=== PATIENT | male | born 1965 | race Caucasian/White ===

== ENCOUNTER 2021-11-01 10:15 | Inpatient (IN) | payer MEDICAID, SELFPAY ==
[~2021-11-01] VITALS: Ht 198.1 cm; Wt 147.0 kg
[2021-11-01 10:39] VITALS: BP_SYST 130
--- NOTE | 2021-11-01 11:00 | NUR ---
Pt to bed 7. Pt ambulatory with steady gait. Pt c/o sob and keeps stating "I just want to get lasix and to go home." Connected pt to ekg monitor tech. Pt has no chest pain and denies n/v. Negative stroke symptoms. EKG done and results were A-fib. Pt has no known allergies. A&Ox4. Hx of A-Fib and HTN. HR is fluctuating up and down, other vitals stable. Bed in lowest position. 22g IV placed on left AC, no infiltration noted.
[2021-11-01] MEDS ORDERED: dilTIAZem HCL IVP 5 MG/ML VIAL IVP ONE (11:15)
[2021-11-01 11:37] LABS: BASOPHILS # (AUTO) 0.1 K/uL (0.0-0.2); BASOPHILS % (AUTO) 0.5 % (0.0-2.0); EOSINOPHILS # (AUTO) 0.1 K/uL (0.0-0.4); EOSINOPHILS % (AUTO) 0.5 % (0.0-4.0); HEMATOCRIT 40.3 % (36-54); HEMOGLOBIN 13.3 g/dL (14.0-18.0); LYMPHOCYTES # (AUTO) 1.7 K/uL (1.0-5.5); LYMPHOCYTES % (AUTO) 13.6 % (20.5-51.5); MEAN CORPUSCULAR HEMOGLOBIN 29 pg (27-31); MEAN CORPUSCULAR HGB CONC 33 % (32-36); MEAN CORPUSCULAR VOLUME 88 fL (79.0-98.0); MONOCYTES # (AUTO) 0.7 K/uL (0.0-1.0); MONOCYTES % (AUTO) 5.8 % (1.7-9.3); NEUTROPHILS # (AUTO) 10.1 K/uL (1.8-7.7); NEUTROPHILS % (AUTO) 79.6 % (40.0-70.0); PLATELET COUNT (AUTO) 164 K/uL (130-430); RED BLOOD CELL COUNT(AUTO) 4.56 MIL/uL (4.2-6.2); RED CELL DISTRIBUTION WIDTH 13.3 % (9.0-15.0); WHITE BLOOD COUNT (AUTO) 12.7 K/uL (4.8-10.8)
[2021-11-01 11:50] LABS: CALCIUM 8.3 mg/dL (8.4-11.0); CREATININE 0.91 mg/dL (0.55-1.30)
--- NOTE | 2021-11-01 12:00 | NUR ---
Was going to do another repeat EKG but pt refused and stated "I do not need another EKG I already know what I have. Just give me lasix so I can go home." ER physician made aware.
[2021-11-01 12:05] LABS: ALBUMIN 3.4 g/dL (3.4-4.8); THYROID STIMULATING HORMONE 0.85 uIu/mL (0.36-3.74); TOTAL BILIRUBIN 0.5 mg/dL (0.0-1.0)
--- NOTE | 2021-11-01 12:38 | NUR ---
ER physician at bedside talking to pt and pt still refusing to do EKG and refusing to get admitted.
--- NOTE | 2021-11-01 12:55 | NUR ---
ER physician convinced pt to have another EKG done and covid swab. Explained benefits of having these diagnostic work up and risks if he refuses to get admitted.
[2021-11-01] MEDS ORDERED: AZITHROMYCIN 500 MG in D5W 250 ML IV ONE (13:00)
[2021-11-01] MEDS ORDERED: cefTRIAXone 1 GM IVPB PREMIX 50 ML IV ONE (13:00)
--- NOTE | 2021-11-01 13:53 | NUR ---
ROCEPHIN UP AND INFUSING WITHOUT DIFFICUTLY. PATIENT RESTING COMFORTABLY. WILL CONINUE TO MONITOR PATIENT. PATIENT DENIES PAIN
--- NOTE | 2021-11-01 14:10 | NUR ---
Urine collected and sent to lab. Pt is A&Ox4. Watching tv with no s/s of distress.
--- NOTE | 2021-11-01 14:14 | NUR ---
Dr. De Santiago called and placed admission orders which were to Admit to Tele, Diagnosis A-Fib, and place on cardiac diet.
[2021-11-01] MEDS ORDERED: AZITHROMYCIN 500 MG/VIAL (ZITHROMAX) IV ONE (14:34)
[2021-11-01] MEDS ORDERED: POTASSIUM CHLORIDE 20 MEQ TAB.PRT.SR PO PRN (14:45)
[2021-11-01] MEDS ORDERED: MORPHINE 2 MG/ML INJ. SYRINGE IVP PRN (14:45)
[2021-11-01] MEDS ORDERED: ACETAMINOPHEN 325 MG TABLET PO PRN (14:45)
[2021-11-01] MEDS ORDERED: ONDANSETRON HCL 4 MG/2 ML VIAL IVP PRN (14:45)
[2021-11-01] MEDS ORDERED: DOCUSATE SODIUM 100 MG CAPSULE PO PRN (14:45)
[2021-11-01] MEDS ORDERED: MUPIROCIN 2% TOPICAL OINTMENT 22 GM NS PRN (14:45)
[2021-11-01] MEDS ORDERED: LORazepam 2 MG/ML VIAL IVP PRN (14:45)
[2021-11-01] MEDS ORDERED: MAGNESIUM SULFATE 50 ML IV PRN (14:45)
[2021-11-01] MEDS ORDERED: NALOXONE HCL 0.4 MG/ML AMP (NARCAN) IVP PRN ×2 (14:45)
[2021-11-01 14:51] LABS: BILIRUBIN,URINE NEGATIVE (NEGATIVE); BLOOD, URINE NEGATIVE (NEGATIVE); CLARITY/URINE CLEAR (CLEAR); COLOR,URINE YELLOW (YELLOW); GLUCOSE,URINE NEGATIVE (NEGATIVE); KETONES,URINE NEGATIVE (NEGATIVE); LEUKOCYTE ESTERASE ,URINE NEGATIVE (NEGATIVE); NITRITE, URINE NEGATIVE (NEGATIVE); PH,URINE 5.5 (5.0-8.0); PROTEIN URINE NEGATIVE (NEGATIVE); UROBILINOGEN,URINE 0.2 (0.2-1.0)
[2021-11-01 15:03] LABS: PROTHROMBIN TIME 10.4 SECS (9.5-12.5)
--- NOTE | 2021-11-01 15:10 | NUR ---
Pt accidently pulled out IV. Gauze and dressing placed to prevent bleeding. Another IV was placed on right wrist 18g, no infiltration noted. Aseptic technique used.
[2021-11-01] MEDS: NACL 0.9% 1,000 ML IV SCH (15:11)
[2021-11-01] MEDS ORDERED: METOPROLOL TARTRATE 25 MG TABLET PO ONE (15:15)
--- NOTE | 2021-11-01 17:55 | NUR ---
CONSULTATION PAGED REASON FOR CONSULTATION:A-FIB WAS CONSULT CALLED? PERSON WHO WAS NOTIFIED:ZACHARIAH CONSULTING PHYSICIAN:AMANDO BRASHER PUPIL PERSONNEL WORKER SPECIALTY:CARDIO PUPIL PERSONNEL WORKER PHONE NUMBER:[phone] REQUESTING PHYSICIAN:[facility]
--- NOTE | 2021-11-01 17:59 | NUR ---
CONSULTATION PAGED REASON FOR CONSULTATION:[facility] WAS CONSULT CALLED?Y PERSON WHO WAS NOTIFIED:RUKHSANA CONSULTING PHYSICIAN:MERLE LIZ CHIEF CRNA SPECIALTY:PULMONARY CHIEF CRNA PHONE NUMBER:[phone] REQUESTING PHYSICIAN:DR.[facility]
--- NOTE | 2021-11-01 18:19 | NUR ---
Patient will be admitted to care of Dr. De Santiago. Admitted to Tele unit. Will go to room 101B. Belongings list completed. Complete and up to date summary report printed. SBAR report to be given at bedside with opportunity for questions.
[2021-11-01 19:10] VITALS: BP_SYST 122
[2021-11-01] MEDS ORDERED: METOPROLOL TARTRATE 25 MG TABLET PO SCH (21:00)
[2021-11-01] MEDS ORDERED: HEPARIN SODIUM,PORCINE 5,000 UNITS/ML VIAL SUBCUT SCH (21:00)
[2021-11-01 21:27] VITALS: BP_SYST 152
[2021-11-01 21:51] VITALS: BP_SYST 152
[2021-11-01] MEDS: cefTRIAXone 1 GM in D5W 50 ML IV SCH (21:53)
[2021-11-01] MEDS: metroNIDAZOLE 500 MG TABLET PO SCH (21:53)
[2021-11-01] MEDS: MORPHINE 2 MG/ML INJ. SYRINGE IVP PRN (21:56)
[2021-11-01] MEDS: ZOLPIDEM TARTRATE 5 MG TABLET PO PRN (23:36)
[2021-11-02] VITALS (7 sets, daily range): BP systolic 123–154
[2021-11-02] LABS: BARBITURATE, URINE NEGATIVE (NEG <=200); BENZODIAZEPINE, URINE NEGATIVE (NEG <=150); CANNABINOID, URINE NEGATIVE (NEG <=50); COCAINE, URINE NEGATIVE (NEG <=150); METHAMPHETAMINES SCREEN,URINE NEGATIVE (NEG <=500); OPIATE, URINE POSITIVE (NEG <=100); PHENCYCLIDINE SCREEN,URINE NEGATIVE (NEG <=25); UR TRICYCLIC ANTIDEPRESSANTS NEGATIVE (NEG <=300); URINE AMPHETAMINE NEGATIVE (NEG <=500); URINE METHADONE NEGATIVE (NEG <=200); URINE OXYCODONE SCREEN NEGATIVE (NEG <=100); URINE PROPOXYPHENE SCREEN NEGATIVE (NEG <=300)
[2021-11-02] MEDS: MORPHINE 2 MG/ML INJ. SYRINGE IVP PRN ×2 (02:57→14:51)
[2021-11-02] MEDS: metroNIDAZOLE 500 MG TABLET PO SCH ×3 (06:19→21:52)
[2021-11-02] MEDS: NACL 0.9% 1,000 ML IV SCH ×2 (06:20→23:28)
[2021-11-02] MEDS: FUROSEMIDE 40 MG/4 ML VIAL IVP SCH ×2 (06:43→09:35)
[2021-11-02 07:22] LABS: BASOPHILS % (AUTO) 0.4 % (0.0-2.0); EOSINOPHILS # (AUTO) 0.1 K/uL (0.0-0.4); EOSINOPHILS % (AUTO) 0.5 % (0.0-4.0); HEMATOCRIT 37.8 % (36-54); HEMOGLOBIN 12.6 g/dL (14.0-18.0); LYMPHOCYTES # (AUTO) 2.5 K/uL (1.0-5.5); LYMPHOCYTES % (AUTO) 22.5 % (20.5-51.5); MEAN CORPUSCULAR HEMOGLOBIN 30 pg (27-31); MEAN CORPUSCULAR HGB CONC 33 % (32-36); MEAN CORPUSCULAR VOLUME 89 fL (79.0-98.0); MONOCYTES # (AUTO) 0.8 K/uL (0.0-1.0); MONOCYTES % (AUTO) 7.2 % (1.7-9.3); NEUTROPHILS # (AUTO) 7.6 K/uL (1.8-7.7); NEUTROPHILS % (AUTO) 69.4 % (40.0-70.0); PLATELET COUNT (AUTO) 152 K/uL (130-430); RED BLOOD CELL COUNT(AUTO) 4.26 MIL/uL (4.2-6.2); RED CELL DISTRIBUTION WIDTH 13.3 % (9.0-15.0)
[2021-11-02 08:02] LABS: CALCIUM 8.4 mg/dL (8.4-11.0); CREATININE 0.86 mg/dL (0.55-1.30); POTASSIUM 4.5 mmol/L (3.5-5.1)
[2021-11-02] MEDS ORDERED: LOSARTAN POTASSIUM 25 MG TABLET PO SCH (09:00)
[2021-11-02] MEDS: HYDROCHLOROTHIAZIDE 25 MG TABLET (HCTZ) PO SCH (09:34)
[2021-11-02] MEDS: METOPROLOL TARTRATE 50 MG TABLET PO SCH ×2 (09:35→21:53)
[2021-11-02] MEDS: APIXABAN 2.5 MG TABLET PO SCH ×2 (09:37→21:53)
--- NOTE | 2021-11-02 10:15 | NUR ---
PATIENTS STATES HE IS HAVING UNRELENTING PAIN IN HIS LEFT SHOULDER, STATES HE IS SCHEDULED TO HAVE SURGERY ON THE SHOULDER OUTPATIENT, ASKED IF HE COULD HAVE MEDICATION TO HELP CONTROL THE PAIN. PROVIDED MORPHINE 1MG IVP, WILL CONTINUE TO MONITOR FOR EFFECTIVENESS.
--- NOTE | 2021-11-02 17:35 | NUR ---
CALLED DR LIVE TO FOLLOW UP ON THE PLAN OF CARE FOR THE PATIENT BECAUSE PATIENT STATED "THE DOCTOR TOLD ME THEY ARE GOING TO SHOCK MY HEART AND DO AN ULTRASOUND". PER THE CURRENT ORDERS THERE IS NO PLAN FOR CARDIOVERSION OR ULTRASOUND SO CALLED DR LIVE TO CONFIRM AND PROVIDED PATIENT WITH A CLEAR PLAN OF CARE. DR LIVE STATES PATIENT DOES NOT NEED CARDIOVERSION AND THAT HE RECENTLY HAD AN ULTRASOUND OF THE HEART THAT WAS NEGATIVE SO HE STATED THE PLAN OF CARE IS TO TITRATE MEDICATIONS AND PATIENT WILL MOST LIKELY BE DISCHARGE TOMORROW.
[2021-11-02] MEDS: cefTRIAXone 1 GM in D5W 50 ML IV SCH (17:50)
--- NOTE | 2021-11-02 17:50 | NUR ---
PATIENT ARRIVED BACK FROM PACU, CLARISA CATH PLACED IN RIGHT UPPER CHEST, DERMABOND USED TO SEAL WOUND, BANDADE IN PLACE ON LEFT NECK FOR FAILED ATTEMPT SITE, REPORTED FROM PACU NURSE ROSE. CHOPRA, NO PAIN, BED IN LOWEST LOCKED POSITION, VITALS STABLE. Addendum: 11/02/21 at 1917 by Sophia Melgar RN DISREGARD, WRONG PATIENT
[2021-11-02] MEDS: ZOLPIDEM TARTRATE 5 MG TABLET PO PRN (21:52)
[2021-11-03 00:58] VITALS: BP_SYST 157
[2021-11-03 04:38] VITALS: BP_SYST 157
[2021-11-03] MEDS: MORPHINE 2 MG/ML INJ. SYRINGE IVP PRN (04:44)
[2021-11-03] MEDS: metroNIDAZOLE 500 MG TABLET PO SCH (05:09)
[2021-11-03 07:27] LABS: CALCIUM 8.5 mg/dL (8.4-11.0); CREATININE 0.93 mg/dL (0.55-1.30); POTASSIUM 3.4 mmol/L (3.5-5.1)
[2021-11-03 08:00] VITALS: BP_SYST 152
[2021-11-03 08:15] LABS: BASOPHILS # (AUTO) 0.1 K/uL (0.0-0.2); BASOPHILS % (AUTO) 0.5 % (0.0-2.0); EOSINOPHILS # (AUTO) 0.2 K/uL (0.0-0.4); EOSINOPHILS % (AUTO) 1.8 % (0.0-4.0); HEMATOCRIT 40.7 % (36-54); HEMOGLOBIN 13.6 g/dL (14.0-18.0); LYMPHOCYTES # (AUTO) 2.1 K/uL (1.0-5.5); LYMPHOCYTES % (AUTO) 18.7 % (20.5-51.5); MEAN CORPUSCULAR HEMOGLOBIN 30 pg (27-31); MEAN CORPUSCULAR HGB CONC 33 % (32-36); MEAN CORPUSCULAR VOLUME 89 fL (79.0-98.0); MONOCYTES # (AUTO) 0.9 K/uL (0.0-1.0); MONOCYTES % (AUTO) 7.7 % (1.7-9.3); NEUTROPHILS % (AUTO) 71.3 % (40.0-70.0); PLATELET COUNT (AUTO) 158 K/uL (130-430); RED BLOOD CELL COUNT(AUTO) 4.59 MIL/uL (4.2-6.2); RED CELL DISTRIBUTION WIDTH 13.7 % (9.0-15.0); WHITE BLOOD COUNT (AUTO) 11.1 K/uL (4.8-10.8)
[2021-11-03] MEDS ORDERED: METO50TA7 PO (08:25)
[2021-11-03] MEDS ORDERED: LEVO500T90 PO (08:25)
[2021-11-03] MEDS ORDERED: POTA-178 PO (08:25)
[2021-11-03] MEDS ORDERED: FURO-150 PO (08:25)
--- NOTE | 2021-11-03 08:30 | NUR ---
Dr Russell and Dr De Santiago cleared patient for discharge, patient is stable at this time, in bed, no s/s of distress, a/ox4, will complete discharge.
[2021-11-03] MEDS: HYDROCHLOROTHIAZIDE 25 MG TABLET (HCTZ) PO SCH (08:37)
[2021-11-03] MEDS: APIXABAN 2.5 MG TABLET PO SCH (08:40)
[2021-11-03] MEDS ORDERED: METOPROLOL SUCCINATE 50 MG TAB.SR.24H (TOPROL XL) PO SCH (09:00)
[2021-11-03] MEDS ORDERED: LOSARTAN POTASSIUM 50 MG TABLET (COZAAR) PO SCH (09:00)
[2021-11-03 10:14] VITALS: BP_SYST 152
--- NOTE | 2021-11-03 10:50 | NUR ---
PATIENT DISCHARGED, IV REMOVED, WRIST BAND REMOVED, DISCHARGE PACKET COMPLETED, SIGNED, PRINTED AND IN CHART, AND COPY WITH PATIENT. DISCHARGE EDUCATION GIVEN AND EXPLAINED MEDICATION ORDERS. PATIENT VOICED UNDERSTANDING. ALL BELONGINGS WITH PATIENT. TAKEN TO CAR IN WHEELCHAIR. TOLERATED WELL.
== END 2021-11-03 10:50 | disposition home or self-care (01) | DRG 720 ==
LOC: SED 10:15 → SMU 14:12 → STU 17:34
PROVIDERS: ADMIT General Practice; ATTEND General Practice
DX: A41.9 Sepsis, unspecified organism (principal); I50.23 Acute on chronic systolic (congestive) heart failure; J18.9 Pneumonia, unspecified organism; I11.0 Hypertensive heart disease with heart failure; I48.91 Unspecified atrial fibrillation; Z20.822 Contact with and (suspected) exposure to COVID-19; K21.9 Gastro-esophageal reflux disease without esophagitis; E66.9 Obesity, unspecified; Z68.37 Body mass index [BMI] 37.0-37.9, adult; Z87.891 Personal history of nicotine dependence
CPT/HCPCS: 36415; 71045; 80048; 80053; 80307; 81003; 83036; 83605; 83735; 83880; 84443; 84484; 85025; 85610-TC; 85730-TC; 87040; 87086; 93005; 96374; 96375; 99291; G0378; J0456; J0696; J1644; J1940; J2270; J3490; J7060

== ENCOUNTER 2022-04-03 07:35 | Emergency (ER) | payer MEDICAID ==
[~2022-04-03] VITALS: Ht 198.1 cm; Wt 136.1 kg
[~2022-04-03 07:35] MED LIST: FURO-150 PO; LEVO500T90 PO; METO50TA7 PO; POTA-178 PO
[2022-04-03 07:37] VITALS: BP_SYST 195
--- NOTE | 2022-04-03 07:49 | NUR ---
PT PLACED IN BED ,IN GOWN, RIGHT ANKLE PAIN, AWAITING FOR ERMD
--- NOTE | 2022-04-03 07:55 | NUR ---
ERMD AT BEDSIDE AT THIS TIME
[2022-04-03] MEDS ORDERED: CYCLOBENZAPRINE HCL 10 MG TABLET (FLEXERIL) PO ONE (08:15)
[2022-04-03] MEDS ORDERED: HYDROcodone/ACETAMIN 7.5-325 MG TAB PO ONE (08:15)
[2022-04-03 08:23] LABS: BASOPHILS # (AUTO) 0.1 K/uL (0.0-0.2); BASOPHILS % (AUTO) 0.7 % (0.0-2.0); EOSINOPHILS # (AUTO) 0.2 K/uL (0.0-0.4); EOSINOPHILS % (AUTO) 1.8 % (0.0-4.0); HEMOGLOBIN 14.2 g/dL (14.0-18.0); LYMPHOCYTES # (AUTO) 2.6 K/uL (1.0-5.5); LYMPHOCYTES % (AUTO) 21.5 % (20.5-51.5); MEAN CORPUSCULAR HEMOGLOBIN 27 pg (27-31); MEAN CORPUSCULAR HGB CONC 33 % (32-36); MEAN CORPUSCULAR VOLUME 82 fL (79.0-98.0); MONOCYTES # (AUTO) 0.6 K/uL (0.0-1.0); MONOCYTES % (AUTO) 5.3 % (1.7-9.3); NEUTROPHILS # (AUTO) 8.6 K/uL (1.8-7.7); NEUTROPHILS % (AUTO) 70.7 % (40.0-70.0); PLATELET COUNT (AUTO) 218 K/uL (130-430); RED BLOOD CELL COUNT(AUTO) 5.24 MIL/uL (4.2-6.2); WHITE BLOOD COUNT (AUTO) 12.2 K/uL (4.8-10.8)
[2022-04-03 08:50] LABS: CREATININE 1.5 mg/dL (0.55-1.30); POTASSIUM 3.3 mmol/L (3.5-5.1)
[2022-04-03 08:55] LABS: ALBUMIN 3.1 g/dL (3.4-4.8); PHOSPHORUS 4.2 mg/dL (2.7-4.5); TOTAL BILIRUBIN 0.8 mg/dL (0.0-1.0)
--- NOTE | 2022-04-03 09:29 | NUR ---
ULTRASOUND AT THE BEDSIDE
--- NOTE | 2022-04-03 09:39 | NUR ---
US AT BEDSIDE AT THIS TIME
[2022-04-03] MEDS ORDERED: IBUPROFEN 600 MG TABLET PO ONE (10:30)
--- NOTE | 2022-04-03 10:30 | NUR ---
PT REFUSED TYLENOL MEDS
[2022-04-03 10:56] LABS: INR 1.2 (0.80-1.20); PROTHROMBIN TIME 12.4 SECS (9.5-12.5)
[2022-04-03] MEDS ORDERED: MORPHINE 4 MG INJ. 4 MG/ML VIAL IVP ONE (11:00)
[2022-04-03] MEDS ORDERED: iohexoL 350 mgI/mL, 100 ML INFUS..BTL IV ONE (11:26)
[2022-04-03] MEDS ORDERED: HEPARIN 25,000 UNITS/D5W 250ML 250 ML IV ONE (11:30)
[2022-04-03] MEDS ORDERED: HEPARIN IV FLUSH 1 UNIT/ML PF 6ML SYRINGE IV ONE (11:30)
--- NOTE | 2022-04-03 11:37 | NUR ---
OFF TO CT ANGIO
[2022-04-03 11:43] LABS: CKMB RELATIVE INDEX 1.5 (0.0-2.9); CREATINE KINASE MB 4.8 ng/mL (0-3.6)
[2022-04-03] MEDS ORDERED: HEPARIN SODIUM,PORCINE 5,000 UNITS/ML VIAL IVP ONE (11:45)
--- NOTE | 2022-04-03 12:13 | NUR ---
HEPARIN DRIP STARTED 12:05 VERIFIED WITH ER CHARGE AND REGISTRY 22
[2022-04-03 12:18] VITALS: BP_SYST 145
--- NOTE | 2022-04-03 13:51 | NUR ---
pt resting in bed , appears to be in no acute distress noted at this time
--- NOTE | 2022-04-03 15:47 | NUR ---
SBAR TO [facility](RN) EMERGENCY ROOM DR DANTE DICKSON [phone]
[2022-04-03] MEDS ORDERED: MORPHINE 2 MG/ML INJ. SYRINGE IVP ONE (16:00)
--- NOTE | 2022-04-03 16:25 | NUR ---
[facility] HERE TO TAKE PT TO [facility], PT A/OX 4 VSS AWARE AND AGREES TO TRANSFER, STABLE TO TRANSFER
== END 2022-04-03 16:27 | disposition short-term general hospital (02) ==
LOC: SED 07:35
DX: I74.9 Embolism and thrombosis of unspecified artery (principal); I70.92 Chronic total occlusion of artery of the extremities; M62.262 Nontraumatic ischemic infarction of muscle, left lower leg; M79.661 Pain in right lower leg; K21.9 Gastro-esophageal reflux disease without esophagitis; I10 Essential (primary) hypertension; Z79.899 Other long term (current) drug therapy
CPT/HCPCS: 99291; 71275; 96365; 93971; 96375; 80053; 82550; 82553; 83735; 84100; 85025; 85610; 85730; 36415; 73610; 75635; 93922; 96376; 74175; 72191; 76376; Q9967; J1644 ×2; J2270 ×2; 96374